=== PATIENT | male | born 1995 | race Caucasian/White ===

== ENCOUNTER 2021-08-24 20:22 | Emergency (ER) | payer BC ==
[~2021-08-24] VITALS: Ht 177.8 cm; Wt 154.2 kg
[2021-08-24] MEDS ORDERED: LORAZEPAM 1 MG TABLET ONE (21:30)
[2021-08-24] MEDS ORDERED: LORAZEPAM 1 MG TABLET PO ONE (21:30)
--- NOTE | 2021-08-24 21:30 | NUR ---
PATIENT BIBS C/O CHEST PAIN RADIATING TO LEFT ARM S/P EATING 50MG OF WEED EDIBLES AT 6PM. PATIENT ALERT AND ORIENTED X3. AMBULATORY WITH NON LABORED BREATHING.
--- NOTE | 2021-08-24 21:31 | NUR ---
EMT @ BEDSIDE FOR EKG
[2021-08-24 22:07] LABS: CALCIUM, SERUM 8.8 mg/dL (8.5-10.1); CARBON DIOXIDE 27 mmol/L (21-32); CHLORIDE 101 mmol/L (98-107); CREATININE 1.3 mg/dL (0.6-1.3); GLUCOSE 195 mg/dL (74-106); POTASSIUM 3.9 mmol/L (3.5-5.1); SODIUM SERUM 135 mmol/L (136-145); UREA NITROGEN, BLOOD 16 mg/dL (7-18)
[2021-08-24 22:26] LABS: BASOPHILS # (AUTO) 0.1 K/uL (0.0-0.2); BASOPHILS % (AUTO) 0.5 % (0.0-2.0); EOSINOPHILS % (AUTO) 0.6 % (0.0-6.0); HEMATOCRIT 46 % (39-51); HEMOGLOBIN 15.8 g/dL (13.5-17.5); LYMPHOCYTES # (AUTO) 1.7 K/uL (0.8-4.8); MEAN CORPUSCULAR HGB CONC 35 g/dl (31.0-36.0); MEAN CORPUSCULAR VOLUME 87 fL (80-96); MONOCYTES # (AUTO) 0.6 K/uL (0.1-1.30); MONOCYTES % (AUTO) 5.9 % (2.0-12.0); NEUTROPHILS # (AUTO) 8.6 K/uL (1.8-8.9); PLATELET COUNT (AUTO) 231 K/uL (150-450); RED BLOOD CELL COUNT(AUTO) 5.24 MIL/uL (4.5-6.0)
--- NOTE | 2021-08-24 23:07 | NUR ---
Patient discharged to home in stable condition. Written and verbal after care instructions given. Patient verbalizes understanding of instruction. PT ambulatory with a steady gait
[2021-08-24 23:08] VITALS: BP 139/87
== END 2021-08-24 23:08 | disposition home or self-care (01) ==
LOC: ER 20:26
DX: F41.0 Panic disorder [episodic paroxysmal anxiety] (principal); F12.980 Cannabis use, unspecified with anxiety disorder
CPT/HCPCS: 36415; 71045-TC; 80048-TC; 84484-TC; 85025-TC

== ENCOUNTER → 2021-12-16 | Emergency (ER) | payer BC ==
[~2021-12-16] VITALS: Ht 177.8 cm; Wt 136.5 kg
--- NOTE | 2021-12-16 02:52 | NUR ---
BIBS C/O PALPITATIONS X4 HOURS "WORST WHEN LAYING". PATIENT IS AAO X 4, RESPIRATIONS UNLABORED, STABLE ON ROOM AIR. PATIENT FURTHER STATES HE IS MORE STRESSED LATELY. PT ATTACHED TO MONITOR AND PULSE OX. WILL CONT TO MONITOR
--- NOTE | 2021-12-16 02:52 | NUR ---
EMT AT BEDSIDE FOR EKG
--- NOTE | 2021-12-16 02:54 | NUR ---
DR MEJIA AT BEDSIDE.
[2021-12-16 03:06] VITALS: BP 178/104
--- NOTE | 2021-12-16 03:06 | NUR ---
Patient discharged to home in stable condition. Written and verbal after care instructions given. Patient verbalizes understanding of instruction. Pt ambulatory with a steady gait
== END | disposition home or self-care (01) ==
LOC: ER 02:32
DX: R00.2 Palpitations (principal); F41.9 Anxiety disorder, unspecified